=== PATIENT | female | born 1975 | race Two or more races ===

== ENCOUNTER 2018-12-08 01:28 | Emergency (ER) | payer BC ==
[~2018-12-08] VITALS: Ht 162.6 cm; Wt 104.3 kg
[2018-12-08] MEDS ORDERED: HYDR-3976 PO (01:39)
--- NOTE | 2018-12-08 01:39 | NUR ---
COLEMAN WALKED INTO ER C/O WORSENING LEFT SHOULDER PAIN AND NECK WITH [place] THAT HAS GOTTEN WORSE IN THE LAST 3HRS. PATIENT STATES SHE SAW PMD EARLIER TODAY AND MENTION SHOULDER PAIN. HER P,D STATES LEFT SHOULDER PAIN IS NORMAL. DENIES CP,SOB,N/V.
[2018-12-08] MEDS ORDERED: DICYCLOMINE HCL LIQ 10 MG/5 ML UDC ONE ×2 (01:54→01:55)
[2018-12-08] MEDS ORDERED: MAG HYDROX/AL HYDROX/SIMETH 30 ML LIQUID UDC ONE (01:54)
[2018-12-08] MEDS ORDERED: DICYCLOMINE HCL LIQ 10 MG/5 ML UDC PO ONE (02:00)
[2018-12-08] MEDS ORDERED: MAG HYDROX/AL HYDROX/SIMETH 30 ML LIQUID UDC PO ONE (02:00)
[2018-12-08] MEDS ORDERED: KETOROLAC TROMETHAMINE 60 MG INJ IM ONE ×2 (02:15)
--- NOTE | 2018-12-08 02:22 | NUR ---
Patient discharged to home in stable conditon. Written and verbal after care instructions given. Patient verbalizes understanding of instructions. WALKED OUT OF ER WITH NO DISTRESS NOTED
[2018-12-08 02:23] VITALS: BP 133/85
== END 2018-12-08 02:24 | disposition home or self-care (01) ==
LOC: ER 01:35
DX: J95.89 Other postprocedural complications and disorders of respiratory system, not elsewhere classified (principal); J98.11 Atelectasis; M25.512 Pain in left shoulder; J45.909 Unspecified asthma, uncomplicated; E11.9 Type 2 diabetes mellitus without complications; Z79.899 Other long term (current) drug therapy
CPT/HCPCS: 71045; 96372; 99283; J1885; A4663

== ENCOUNTER 2022-04-08 21:52 | Emergency (ER) | payer BC ==
[~2022-04-08] VITALS: Ht 162.6 cm; Wt 92.5 kg
[~2022-04-08 21:52] MED LIST: HYDR-3976 PO
--- NOTE | 2022-04-08 22:10 | NUR ---
Patient A/Ox 4. Ambulatory with a steady gait. NAD noted.
--- NOTE | 2022-04-08 22:35 | NUR ---
Dr. Swenson at bedside. MSE in progress.
[2022-04-08 22:43] LABS: HEMATOCRIT 34.4 % (31.2-41.9); MEAN CORPUSCULAR HEMOGLOBIN 30.2 uug (24.7-32.8); PLATELET COUNT (AUTO) 239 K/uL (179-408)
[2022-04-08 23:13] LABS: CARBON DIOXIDE 27 mmol/L (21-32); CHLORIDE 109 mmol/L (98-107); CREATININE 0.8 mg/dL (0.6-1.3); GLUCOSE 86 mg/dL (74-106); POTASSIUM 4.2 mmol/L (3.5-5.1); UREA NITROGEN, BLOOD 11 mg/dL (7-18)
[2022-04-08 23:36] LABS: ALANINE AMINOTRANSFERASE 16 U/L (14-59); ALKALINE PHOSPHATASE 65 U/L (50-136); ASPARTATE AMINOTRANSFERASE 10 U/L (15-37); BILIRUBIN,DIRECT < 0.1 mg/dL (0.0-0.2); BILIRUBIN,TOTAL 0.2 mg/dL (0.2-1.0); TOTAL PROTEIN, SERUM 6.6 g/dL (6.4-8.2)
[2022-04-08] MEDS ORDERED: KETOROLAC TROMETHAMINE 60 MG INJ IM ONE (23:45)
[2022-04-08 23:59] LABS: *URINE HCG, QUAL NEGATIVE (NEGATIVE)
[2022-04-09] MEDS ORDERED: KETOROLAC TROMETHAMINE 60 MG INJ IM ONE (00:18)
--- NOTE | 2022-04-09 01:45 | NUR ---
Patient discharged to home in stable condition. A/Ox4. NAD note. All belongings with patient. Written and verbal after care instructions given. Patient verbalizes understanding of instructions. Stressed follow up or return to ER for worsening s/s.
[2022-04-09 01:46] VITALS: BP 130/77
== END 2022-04-09 01:46 | disposition home or self-care (01) ==
LOC: ER 21:52
DX: R07.9 Chest pain, unspecified (principal); J45.909 Unspecified asthma, uncomplicated; Z98.84 Bariatric surgery status
CPT/HCPCS: 71045; 80076; 80048; 84703; 83880; 85025; 85379; 84484 ×2; 36415 ×2; 93005 ×2; 99285; 96372; J1885